=== PATIENT | male | born 1945 | race Caucasian/White ===

== ENCOUNTER 2023-01-31 06:00 | Day surgery (SDC) | payer OTHER ==
[~2023-01-31] VITALS: Ht 165.1 cm; Wt 58.1 kg
[~2023-01-31 06:00] MED LIST: ACID REDUCER20 M1 PO; ALPRAZOLAM XR0.5 MG PO; CRESTOR20 MG PO; DESLORATADINE5 M1 PO; ECOTRIN81 MG PO; METFORMIN HCL500 M3 PO; PATADAY2.5 ML OP; SYSTANE COMPLE1.5 ML OP; TOPROL XL50 M1 PO; ZESTRIL5 MG PO
== END 2023-01-31 12:20 | disposition home or self-care (01) ==
LOC: CIR.AMB 06:00
PROVIDERS: ATTEND Surgery
DX: K40.20 Bilateral inguinal hernia, without obstruction or gangrene, not specified as recurrent (principal); K40.21 Bilateral inguinal hernia, without obstruction or gangrene, recurrent; D17.5 Benign lipomatous neoplasm of intra-abdominal organs; Z20.822 Contact with and (suspected) exposure to COVID-19; I10 Essential (primary) hypertension; E78.5 Hyperlipidemia, unspecified
CPT/HCPCS: 49505; 49520; C1781